=== PATIENT | male | born 2000 | race Asian ===

== ENCOUNTER 2024-07-16 19:46 | Emergency (ER) | payer OTHER ==
[~2024-07-16] VITALS: Ht 160 cm; Wt 60.3 kg
[2024-07-16] MEDS ORDERED: ONDA4TAB5 PO (20:55)
[2024-07-16] MEDS ORDERED: TIZA4TAB5 PO (20:55)
[2024-07-16 21:03] VITALS: BP 120/78; TEMP 98; O2SAT 96
== END 2024-07-16 21:03 | disposition home or self-care (01) ==
LOC: ER 19:51 → EDBD 19:51 → ER 21:03
DX: S00.81XA Abrasion of other part of head, initial encounter (principal); S06.0X9A Concussion with loss of consciousness of unspecified duration, initial encounter; F41.8 Other specified anxiety disorders; W22.01XA Walked into wall, initial encounter; Y93.11 Activity, swimming; Y92.89 Other specified places as the place of occurrence of the external cause; Y99.8 Other external cause status